=== PATIENT | male | born 1935 | race Caucasian/White ===

== ENCOUNTER 2022-04-04 11:18 | Inpatient (IN) | payer MEDICARE, BC ==
[2022-04-04] MEDS ORDERED: Cyclobenzaprine 10 MG Tab PO PRN (13:54)
[2022-04-04] MEDS ORDERED: Albuterol 8 GM Inhaler INH PRN (14:08)
[2022-04-04] MEDS: Lactulose Soln 10 GM/15 ML 30 ML UD Cup PO SCH ×2 (15:17→22:05)
[2022-04-04] MEDS: Lactulose Soln 10 GM/15 ML 15 ML UD Cup PO SCH (18:49)
[2022-04-04] MEDS: atorvaSTATin 40 MG Tab PO SCH (22:06)
[2022-04-04] MEDS: Metoprolol Tartrate 50 MG Tab PO SCH (22:06)
[2022-04-05] MEDS: Acetaminophen 325 MG Tab PO PRN (04:44)
[2022-04-05] MEDS: Pantoprazole 40 MG Tab.CR PO SCH (06:23)
[2022-04-05] MEDS: Furosemide 20 MG Tab PO SCH (08:44)
[2022-04-05] MEDS: Tamsulosin 0.4 MG Cap.ER PO SCH (08:44)
[2022-04-05] MEDS: Amiodarone 200 MG Tab PO SCH (08:44)
[2022-04-05] MEDS: Finasteride 5 MG Tab PO SCH (08:45)
[2022-04-05] MEDS: Polyethylene Glycol 3350 Powder 17 GM Packet PO SCH (08:45)
[2022-04-05] MEDS: amLODIPine 2.5 MG Tab PO SCH (08:52)
[2022-04-05] MEDS: Metoprolol Tartrate 25 MG Tab PO SCH (08:52)
[2022-04-05] MEDS: Lactulose Soln 10 GM/15 ML 30 ML UD Cup PO SCH ×3 (08:53→21:26)
[2022-04-05] MEDS: SALMETEROL INH SCH ×2 (09:01→21:27)
[2022-04-05] MEDS: FLUTICASONE PROPION INH SCH ×2 (09:01→21:27)
[2022-04-05] MEDS ORDERED: Warfarin 2.5 MG Tab PO SCH (16:00)
[2022-04-05] MEDS ORDERED: Warfarin Sliding Scale PO SCH (16:00)
[2022-04-05] MEDS: atorvaSTATin 40 MG Tab PO SCH (21:27)
[2022-04-05] MEDS: Metoprolol Tartrate 50 MG Tab PO SCH (21:27)
[2022-04-06] MEDS: Acetaminophen 325 MG Tab PO PRN ×2 (02:00→10:48)
[2022-04-06] MEDS: Pantoprazole 40 MG Tab.CR PO SCH (05:41)
[2022-04-06] MEDS: SALMETEROL INH SCH ×2 (10:40→20:55)
[2022-04-06] MEDS: FLUTICASONE PROPION INH SCH ×2 (10:40→20:55)
[2022-04-06] MEDS: Lactulose Soln 10 GM/15 ML 30 ML UD Cup PO SCH ×3 (10:41→20:56)
[2022-04-06] MEDS: Amiodarone 200 MG Tab PO SCH (10:41)
[2022-04-06] MEDS: Furosemide 20 MG Tab PO SCH (10:42)
[2022-04-06] MEDS: Finasteride 5 MG Tab PO SCH (10:42)
[2022-04-06] MEDS: Tamsulosin 0.4 MG Cap.ER PO SCH (10:42)
[2022-04-06] MEDS: Metoprolol Tartrate 25 MG Tab PO SCH (10:42)
[2022-04-06] MEDS: amLODIPine 2.5 MG Tab PO SCH (10:42)
[2022-04-06] MEDS: Polyethylene Glycol 3350 Powder 17 GM Packet PO SCH (10:42)
[2022-04-06] MEDS ORDERED: Warfarin 2.5 MG Tab PO ONE (16:00)
[2022-04-06] MEDS: atorvaSTATin 40 MG Tab PO SCH (20:55)
[2022-04-06] MEDS: Metoprolol Tartrate 50 MG Tab PO SCH (20:55)
[2022-04-07] MEDS: Pantoprazole 40 MG Tab.CR PO SCH (06:00)
[2022-04-07] MEDS: SALMETEROL INH SCH ×3 (08:24→20:13)
[2022-04-07] MEDS: FLUTICASONE PROPION INH SCH ×3 (08:24→20:13)
[2022-04-07] MEDS: amLODIPine 2.5 MG Tab PO SCH (08:24)
[2022-04-07] MEDS: Amiodarone 200 MG Tab PO SCH (08:25)
[2022-04-07] MEDS: Furosemide 20 MG Tab PO SCH (08:25)
[2022-04-07] MEDS: Lactulose Soln 10 GM/15 ML 30 ML UD Cup PO SCH (08:26)
[2022-04-07] MEDS: Tamsulosin 0.4 MG Cap.ER PO SCH (08:26)
[2022-04-07] MEDS: Polyethylene Glycol 3350 Powder 17 GM Packet PO SCH (08:27)
[2022-04-07] MEDS: Finasteride 5 MG Tab PO SCH (08:27)
[2022-04-07] MEDS: Metoprolol Tartrate 25 MG Tab PO SCH (08:27)
[2022-04-07] MEDS: Acetaminophen 325 MG Tab PO PRN (08:42)
[2022-04-07] MEDS ORDERED: Warfarin 5 MG Tab PO ONE (16:00)
[2022-04-07] MEDS: Metoprolol Tartrate 50 MG Tab PO SCH (20:12)
[2022-04-07] MEDS: atorvaSTATin 40 MG Tab PO SCH (20:12)
[2022-04-08] MEDS: Acetaminophen 325 MG Tab PO PRN ×2 (00:35→08:38)
[2022-04-08] MEDS: Pantoprazole 40 MG Tab.CR PO SCH (05:58)
[2022-04-08] MEDS: Amiodarone 200 MG Tab PO SCH (08:39)
[2022-04-08] MEDS: Finasteride 5 MG Tab PO SCH (08:39)
[2022-04-08] MEDS: Tamsulosin 0.4 MG Cap.ER PO SCH (08:39)
[2022-04-08] MEDS: Metoprolol Tartrate 25 MG Tab PO SCH (08:39)
[2022-04-08] MEDS: Furosemide 20 MG Tab PO SCH (08:40)
[2022-04-08] MEDS: amLODIPine 2.5 MG Tab PO SCH (08:40)
[2022-04-08] MEDS: SALMETEROL INH SCH ×2 (08:40→20:17)
[2022-04-08] MEDS: FLUTICASONE PROPION INH SCH ×2 (08:40→20:17)
[2022-04-08] MEDS ORDERED: Warfarin 2.5 MG Tab PO ONE (16:00)
[2022-04-08] MEDS: Metoprolol Tartrate 50 MG Tab PO SCH (20:17)
[2022-04-08] MEDS: atorvaSTATin 40 MG Tab PO SCH (20:17)
[2022-04-09] MEDS: Pantoprazole 40 MG Tab.CR PO SCH (05:02)
[2022-04-09] MEDS: Metoprolol Tartrate 25 MG Tab PO SCH (08:12)
[2022-04-09] MEDS: Amiodarone 200 MG Tab PO SCH (08:13)
[2022-04-09] MEDS: Furosemide 20 MG Tab PO SCH (08:13)
[2022-04-09] MEDS: Finasteride 5 MG Tab PO SCH (08:13)
[2022-04-09] MEDS: Tamsulosin 0.4 MG Cap.ER PO SCH (08:13)
[2022-04-09] MEDS: amLODIPine 2.5 MG Tab PO SCH (08:13)
[2022-04-09] MEDS: FLUTICASONE PROPION INH SCH ×2 (08:14→20:40)
[2022-04-09] MEDS: SALMETEROL INH SCH ×2 (08:14→20:40)
[2022-04-09] MEDS ORDERED: Warfarin 2.5 MG Tab PO ONE (16:00)
[2022-04-09] MEDS ORDERED: Warfarin 2.5 MG Tab PO SCH (16:00)
[2022-04-09] MEDS: atorvaSTATin 40 MG Tab PO SCH (20:37)
[2022-04-09] MEDS: Metoprolol Tartrate 50 MG Tab PO SCH (20:42)
[2022-04-09] MEDS: Melatonin 3 MG Tab PO PRN (20:44)
[2022-04-09] MEDS: Acetaminophen 325 MG Tab PO PRN (20:44)
[2022-04-10] MEDS: Pantoprazole 40 MG Tab.CR PO SCH (06:18)
[2022-04-10] MEDS: Amiodarone 200 MG Tab PO SCH (08:12)
[2022-04-10] MEDS: FLUTICASONE PROPION INH SCH ×2 (08:12→21:37)
[2022-04-10] MEDS: Furosemide 20 MG Tab PO SCH (08:12)
[2022-04-10] MEDS: Tamsulosin 0.4 MG Cap.ER PO SCH (08:12)
[2022-04-10] MEDS: SALMETEROL INH SCH ×2 (08:12→21:37)
[2022-04-10] MEDS: Metoprolol Tartrate 25 MG Tab PO SCH (08:13)
[2022-04-10] MEDS: amLODIPine 2.5 MG Tab PO SCH (08:14)
[2022-04-10] MEDS: Finasteride 5 MG Tab PO SCH (08:17)
[2022-04-10] MEDS ORDERED: Warfarin 2.5 MG Tab PO ONE (16:00)
[2022-04-10] MEDS: atorvaSTATin 40 MG Tab PO SCH (21:37)
[2022-04-10] MEDS: Acetaminophen 325 MG Tab PO PRN (21:38)
[2022-04-10] MEDS: Metoprolol Tartrate 50 MG Tab PO SCH (21:38)
[2022-04-10] MEDS: Melatonin 3 MG Tab PO PRN (21:58)
[2022-04-11] MEDS: Pantoprazole 40 MG Tab.CR PO SCH (05:29)
[2022-04-11] MEDS: Metoprolol Tartrate 25 MG Tab PO SCH (08:22)
[2022-04-11] MEDS: amLODIPine 2.5 MG Tab PO SCH (08:22)
[2022-04-11] MEDS: Amiodarone 200 MG Tab PO SCH (08:22)
[2022-04-11] MEDS: FLUTICASONE PROPION INH SCH ×2 (08:22→21:21)
[2022-04-11] MEDS: Furosemide 20 MG Tab PO SCH (08:22)
[2022-04-11] MEDS: SALMETEROL INH SCH ×2 (08:22→21:21)
[2022-04-11] MEDS: Tamsulosin 0.4 MG Cap.ER PO SCH (08:22)
[2022-04-11] MEDS: Finasteride 5 MG Tab PO SCH (08:23)
[2022-04-11] MEDS ORDERED: Warfarin 2.5 MG Tab PO ONE (16:00)
[2022-04-11] MEDS: Melatonin 3 MG Tab PO PRN (21:21)
[2022-04-11] MEDS: Acetaminophen 325 MG Tab PO PRN (21:22)
[2022-04-11] MEDS: Metoprolol Tartrate 50 MG Tab PO SCH (21:22)
[2022-04-11] MEDS: atorvaSTATin 40 MG Tab PO SCH (21:22)
[2022-04-12] MEDS: Pantoprazole 40 MG Tab.CR PO SCH (06:33)
[2022-04-12] MEDS: Amiodarone 200 MG Tab PO SCH (09:59)
[2022-04-12] MEDS: FLUTICASONE PROPION INH SCH ×2 (09:59→20:06)
[2022-04-12] MEDS: SALMETEROL INH SCH ×2 (09:59→20:06)
[2022-04-12] MEDS: Tamsulosin 0.4 MG Cap.ER PO SCH (09:59)
[2022-04-12] MEDS: amLODIPine 2.5 MG Tab PO SCH (10:00)
[2022-04-12] MEDS: Metoprolol Tartrate 25 MG Tab PO SCH (10:00)
[2022-04-12] MEDS: Furosemide 20 MG Tab PO SCH (10:00)
[2022-04-12] MEDS: Finasteride 5 MG Tab PO SCH (10:01)
[2022-04-12] MEDS: Metoprolol Tartrate 50 MG Tab PO SCH (20:07)
[2022-04-12] MEDS: atorvaSTATin 40 MG Tab PO SCH (20:07)
[2022-04-12] MEDS: Melatonin 3 MG Tab PO PRN (20:13)
[2022-04-12] MEDS: Acetaminophen 325 MG Tab PO PRN (20:13)
[2022-04-13] MEDS: Pantoprazole 40 MG Tab.CR PO SCH (05:50)
[2022-04-13] MEDS: Furosemide 20 MG Tab PO SCH (08:32)
[2022-04-13] MEDS: Metoprolol Tartrate 25 MG Tab PO SCH (08:32)
[2022-04-13] MEDS: Amiodarone 200 MG Tab PO SCH (08:32)
[2022-04-13] MEDS: SALMETEROL INH SCH ×2 (08:32→21:09)
[2022-04-13] MEDS: FLUTICASONE PROPION INH SCH ×2 (08:32→21:09)
[2022-04-13] MEDS: Tamsulosin 0.4 MG Cap.ER PO SCH (08:32)
[2022-04-13] MEDS: amLODIPine 2.5 MG Tab PO SCH (08:33)
[2022-04-13] MEDS: Finasteride 5 MG Tab PO SCH (08:33)
[2022-04-13] MEDS ORDERED: Warfarin 2.5 MG Tab PO ONE (16:00)
[2022-04-13] MEDS: Acetaminophen 325 MG Tab PO PRN (21:07)
[2022-04-13] MEDS: Melatonin 3 MG Tab PO PRN (21:08)
[2022-04-13] MEDS: Metoprolol Tartrate 50 MG Tab PO SCH (21:13)
[2022-04-13] MEDS: atorvaSTATin 40 MG Tab PO SCH (21:13)
[2022-04-14] MEDS: Pantoprazole 40 MG Tab.CR PO SCH (05:24)
[2022-04-14] MEDS: Furosemide 20 MG Tab PO SCH (08:06)
[2022-04-14] MEDS: Tamsulosin 0.4 MG Cap.ER PO SCH (08:06)
[2022-04-14] MEDS: Amiodarone 200 MG Tab PO SCH (08:06)
[2022-04-14] MEDS: Finasteride 5 MG Tab PO SCH (08:07)
[2022-04-14] MEDS: SALMETEROL INH SCH ×2 (08:07→21:10)
[2022-04-14] MEDS: amLODIPine 2.5 MG Tab PO SCH (08:07)
[2022-04-14] MEDS: Metoprolol Tartrate 25 MG Tab PO SCH (08:07)
[2022-04-14] MEDS: FLUTICASONE PROPION INH SCH ×2 (08:07→21:10)
[2022-04-14] MEDS ORDERED: Warfarin 2.5 MG Tab PO ONE (16:00)
[2022-04-14] MEDS: atorvaSTATin 40 MG Tab PO SCH (21:12)
[2022-04-14] MEDS: Metoprolol Tartrate 50 MG Tab PO SCH (21:12)
[2022-04-14] MEDS: Melatonin 3 MG Tab PO PRN (21:26)
[2022-04-14] MEDS: Acetaminophen 325 MG Tab PO PRN (21:27)
[2022-04-15] MEDS: Pantoprazole 40 MG Tab.CR PO SCH (05:16)
[2022-04-15] MEDS: Amiodarone 200 MG Tab PO SCH (08:30)
[2022-04-15] MEDS: amLODIPine 2.5 MG Tab PO SCH (08:30)
[2022-04-15] MEDS: Tamsulosin 0.4 MG Cap.ER PO SCH (08:30)
[2022-04-15] MEDS: Furosemide 20 MG Tab PO SCH (08:30)
[2022-04-15] MEDS: SALMETEROL INH SCH ×2 (08:31→21:22)
[2022-04-15] MEDS: Metoprolol Tartrate 25 MG Tab PO SCH (08:31)
[2022-04-15] MEDS: FLUTICASONE PROPION INH SCH ×2 (08:31→21:22)
[2022-04-15] MEDS: Finasteride 5 MG Tab PO SCH (08:31)
[2022-04-15] MEDS: Polyethylene Glycol 3350 Powder 17 GM Packet PO PRN (11:25)
[2022-04-15] MEDS: Acetaminophen 325 MG Tab PO PRN (21:21)
[2022-04-15] MEDS: atorvaSTATin 40 MG Tab PO SCH (21:22)
[2022-04-15] MEDS: Metoprolol Tartrate 50 MG Tab PO SCH (21:22)
[2022-04-16] MEDS: Pantoprazole 40 MG Tab.CR PO SCH (05:04)
[2022-04-16] MEDS: FLUTICASONE PROPION INH SCH ×2 (09:18→20:08)
[2022-04-16] MEDS: Tamsulosin 0.4 MG Cap.ER PO SCH (09:18)
[2022-04-16] MEDS: Amiodarone 200 MG Tab PO SCH (09:18)
[2022-04-16] MEDS: SALMETEROL INH SCH ×2 (09:18→20:08)
[2022-04-16] MEDS: Furosemide 20 MG Tab PO SCH (09:19)
[2022-04-16] MEDS: Metoprolol Tartrate 25 MG Tab PO SCH (09:19)
[2022-04-16] MEDS: amLODIPine 2.5 MG Tab PO SCH (09:20)
[2022-04-16] MEDS: Finasteride 5 MG Tab PO SCH (09:20)
[2022-04-16] MEDS ORDERED: Warfarin 2.5 MG Tab PO ONE (16:00)
[2022-04-16] MEDS: Metoprolol Tartrate 50 MG Tab PO SCH (20:08)
[2022-04-16] MEDS: atorvaSTATin 40 MG Tab PO SCH (20:08)
[2022-04-17] MEDS: Pantoprazole 40 MG Tab.CR PO SCH (06:04)
[2022-04-17] MEDS: Finasteride 5 MG Tab PO SCH (08:31)
[2022-04-17] MEDS: Amiodarone 200 MG Tab PO SCH (08:31)
[2022-04-17] MEDS: Furosemide 20 MG Tab PO SCH (08:31)
[2022-04-17] MEDS: Tamsulosin 0.4 MG Cap.ER PO SCH (08:31)
[2022-04-17] MEDS: SALMETEROL INH SCH ×2 (08:32→20:37)
[2022-04-17] MEDS: FLUTICASONE PROPION INH SCH ×2 (08:32→20:37)
[2022-04-17] MEDS: Metoprolol Tartrate 25 MG Tab PO SCH (08:32)
[2022-04-17] MEDS: amLODIPine 2.5 MG Tab PO SCH (08:33)
[2022-04-17] MEDS: Polyethylene Glycol 3350 Powder 17 GM Packet PO PRN (17:57)
[2022-04-17] MEDS: Metoprolol Tartrate 50 MG Tab PO SCH (20:37)
[2022-04-17] MEDS: atorvaSTATin 40 MG Tab PO SCH (20:37)
[2022-04-17] MEDS: Acetaminophen 325 MG Tab PO PRN (20:38)
[2022-04-17] MEDS: Melatonin 3 MG Tab PO PRN (20:39)
[2022-04-18] MEDS: Pantoprazole 40 MG Tab.CR PO SCH (05:13)
[2022-04-18] MEDS: Amiodarone 200 MG Tab PO SCH (08:04)
[2022-04-18] MEDS: Tamsulosin 0.4 MG Cap.ER PO SCH (08:04)
[2022-04-18] MEDS: Furosemide 20 MG Tab PO SCH (08:05)
[2022-04-18] MEDS: SALMETEROL INH SCH ×2 (08:05→20:17)
[2022-04-18] MEDS: FLUTICASONE PROPION INH SCH ×2 (08:05→20:17)
[2022-04-18] MEDS: Metoprolol Tartrate 25 MG Tab PO SCH (08:05)
[2022-04-18] MEDS: Finasteride 5 MG Tab PO SCH (08:06)
[2022-04-18] MEDS: amLODIPine 2.5 MG Tab PO SCH (08:06)
[2022-04-18] MEDS: atorvaSTATin 40 MG Tab PO SCH (20:18)
[2022-04-18] MEDS: Metoprolol Tartrate 50 MG Tab PO SCH (20:20)
[2022-04-18] MEDS: Melatonin 3 MG Tab PO PRN (20:40)
[2022-04-19] MEDS: Pantoprazole 40 MG Tab.CR PO SCH (05:52)
[2022-04-19] MEDS: Tamsulosin 0.4 MG Cap.ER PO SCH (09:20)
[2022-04-19] MEDS: Amiodarone 200 MG Tab PO SCH (09:20)
[2022-04-19] MEDS: SALMETEROL INH SCH ×2 (09:20→20:21)
[2022-04-19] MEDS: FLUTICASONE PROPION INH SCH ×2 (09:20→20:21)
[2022-04-19] MEDS: Metoprolol Tartrate 25 MG Tab PO SCH (09:21)
[2022-04-19] MEDS: Furosemide 20 MG Tab PO SCH (09:21)
[2022-04-19] MEDS: Finasteride 5 MG Tab PO SCH (09:23)
[2022-04-19] MEDS: amLODIPine 2.5 MG Tab PO SCH (09:23)
[2022-04-19] MEDS: Polyethylene Glycol 3350 Powder 17 GM Packet PO PRN (09:24)
[2022-04-19] MEDS: Metoprolol Tartrate 50 MG Tab PO SCH (20:23)
[2022-04-19] MEDS: atorvaSTATin 40 MG Tab PO SCH (20:23)
[2022-04-20] MEDS: Pantoprazole 40 MG Tab.CR PO SCH (06:09)
[2022-04-20] MEDS: Finasteride 5 MG Tab PO SCH (08:07)
[2022-04-20] MEDS: Metoprolol Tartrate 25 MG Tab PO SCH (08:07)
[2022-04-20] MEDS: amLODIPine 2.5 MG Tab PO SCH (08:07)
[2022-04-20] MEDS: Amiodarone 200 MG Tab PO SCH (08:07)
[2022-04-20] MEDS: FLUTICASONE PROPION INH SCH ×2 (08:08→20:08)
[2022-04-20] MEDS: SALMETEROL INH SCH ×2 (08:08→20:08)
[2022-04-20] MEDS: Furosemide 20 MG Tab PO SCH (08:08)
[2022-04-20] MEDS: Tamsulosin 0.4 MG Cap.ER PO SCH (08:08)
[2022-04-20] MEDS: Acetaminophen 325 MG Tab PO PRN ×2 (10:58→20:15)
[2022-04-20] MEDS: Metoprolol Tartrate 50 MG Tab PO SCH (20:14)
[2022-04-20] MEDS: atorvaSTATin 40 MG Tab PO SCH (20:14)
[2022-04-20] MEDS: Melatonin 3 MG Tab PO PRN (20:15)
[2022-04-21] MEDS: Pantoprazole 40 MG Tab.CR PO SCH (05:57)
[2022-04-21] MEDS: FLUTICASONE PROPION INH SCH ×2 (08:22→20:11)
[2022-04-21] MEDS: SALMETEROL INH SCH ×2 (08:22→20:11)
[2022-04-21] MEDS: amLODIPine 2.5 MG Tab PO SCH (08:23)
[2022-04-21] MEDS: Amiodarone 200 MG Tab PO SCH (08:23)
[2022-04-21] MEDS: Furosemide 20 MG Tab PO SCH (08:23)
[2022-04-21] MEDS: Metoprolol Tartrate 25 MG Tab PO SCH (08:24)
[2022-04-21] MEDS: Tamsulosin 0.4 MG Cap.ER PO SCH (08:24)
[2022-04-21] MEDS: Finasteride 5 MG Tab PO SCH (08:25)
[2022-04-21] MEDS: Metoprolol Tartrate 50 MG Tab PO SCH (20:13)
[2022-04-21] MEDS: atorvaSTATin 40 MG Tab PO SCH (20:13)
[2022-04-21] MEDS: Acetaminophen 325 MG Tab PO PRN (20:17)
[2022-04-21] MEDS: Melatonin 3 MG Tab PO PRN (20:18)
[2022-04-22] MEDS: Pantoprazole 40 MG Tab.CR PO SCH (05:32)
[2022-04-22] MEDS: SALMETEROL INH SCH ×2 (08:27→20:20)
[2022-04-22] MEDS: FLUTICASONE PROPION INH SCH ×2 (08:27→20:20)
[2022-04-22] MEDS: amLODIPine 2.5 MG Tab PO SCH (08:28)
[2022-04-22] MEDS: Furosemide 20 MG Tab PO SCH (08:28)
[2022-04-22] MEDS: Amiodarone 200 MG Tab PO SCH (08:28)
[2022-04-22] MEDS: Finasteride 5 MG Tab PO SCH (08:29)
[2022-04-22] MEDS: Metoprolol Tartrate 25 MG Tab PO SCH (08:29)
[2022-04-22] MEDS: Tamsulosin 0.4 MG Cap.ER PO SCH (08:29)
[2022-04-22] MEDS: atorvaSTATin 40 MG Tab PO SCH (20:20)
[2022-04-22] MEDS: Metoprolol Tartrate 50 MG Tab PO SCH (20:20)
[2022-04-22] MEDS: Acetaminophen 325 MG Tab PO PRN (20:21)
[2022-04-22] MEDS: Melatonin 3 MG Tab PO PRN (20:21)
[2022-04-23] MEDS: Pantoprazole 40 MG Tab.CR PO SCH (05:30)
[2022-04-23] MEDS: Furosemide 20 MG Tab PO SCH (08:18)
[2022-04-23] MEDS: Amiodarone 200 MG Tab PO SCH (08:18)
[2022-04-23] MEDS: Metoprolol Tartrate 25 MG Tab PO SCH (08:18)
[2022-04-23] MEDS: amLODIPine 2.5 MG Tab PO SCH (08:18)
[2022-04-23] MEDS: SALMETEROL INH SCH ×2 (08:19→20:20)
[2022-04-23] MEDS: FLUTICASONE PROPION INH SCH ×2 (08:19→20:20)
[2022-04-23] MEDS: Tamsulosin 0.4 MG Cap.ER PO SCH (08:19)
[2022-04-23] MEDS: Finasteride 5 MG Tab PO SCH (08:19)
[2022-04-23] MEDS: atorvaSTATin 40 MG Tab PO SCH (20:22)
[2022-04-23] MEDS: Metoprolol Tartrate 50 MG Tab PO SCH (20:22)
[2022-04-23] MEDS: Melatonin 3 MG Tab PO PRN (20:22)
[2022-04-23] MEDS: Acetaminophen 325 MG Tab PO PRN (20:23)
[2022-04-24] MEDS: Pantoprazole 40 MG Tab.CR PO SCH (06:21)
[2022-04-24] MEDS: amLODIPine 2.5 MG Tab PO SCH (08:00)
[2022-04-24] MEDS: Amiodarone 200 MG Tab PO SCH (08:00)
[2022-04-24] MEDS: Finasteride 5 MG Tab PO SCH (08:00)
[2022-04-24] MEDS: FLUTICASONE PROPION INH SCH ×2 (08:00→21:11)
[2022-04-24] MEDS: SALMETEROL INH SCH ×2 (08:00→21:11)
[2022-04-24] MEDS: Metoprolol Tartrate 25 MG Tab PO SCH (08:00)
[2022-04-24] MEDS: Furosemide 20 MG Tab PO SCH (08:00)
[2022-04-24] MEDS: Tamsulosin 0.4 MG Cap.ER PO SCH (08:00)
[2022-04-24] MEDS: atorvaSTATin 40 MG Tab PO SCH (21:11)
[2022-04-24] MEDS: Metoprolol Tartrate 50 MG Tab PO SCH (21:12)
[2022-04-24] MEDS: Acetaminophen 325 MG Tab PO PRN (21:13)
[2022-04-24] MEDS: Melatonin 3 MG Tab PO PRN (21:13)
[2022-04-25] MEDS: Pantoprazole 40 MG Tab.CR PO SCH (06:17)
[2022-04-25] MEDS: Finasteride 5 MG Tab PO SCH (08:54)
[2022-04-25] MEDS: amLODIPine 2.5 MG Tab PO SCH (08:54)
[2022-04-25] MEDS: Furosemide 20 MG Tab PO SCH (08:55)
[2022-04-25] MEDS: Amiodarone 200 MG Tab PO SCH (08:55)
[2022-04-25] MEDS: Metoprolol Tartrate 25 MG Tab PO SCH (08:55)
[2022-04-25] MEDS: Tamsulosin 0.4 MG Cap.ER PO SCH (08:55)
[2022-04-25] MEDS: SALMETEROL INH SCH ×2 (08:56→20:29)
[2022-04-25] MEDS: FLUTICASONE PROPION INH SCH ×2 (08:56→20:29)
[2022-04-25] MEDS: Metoprolol Tartrate 50 MG Tab PO SCH (20:31)
[2022-04-25] MEDS: atorvaSTATin 40 MG Tab PO SCH (20:31)
[2022-04-25] MEDS: Melatonin 3 MG Tab PO PRN (20:32)
[2022-04-25] MEDS: Acetaminophen 325 MG Tab PO PRN (20:33)
[2022-04-26] MEDS: Pantoprazole 40 MG Tab.CR PO SCH (05:03)
[2022-04-26] MEDS: Amiodarone 200 MG Tab PO SCH (08:58)
[2022-04-26] MEDS: SALMETEROL INH SCH ×2 (08:59→21:28)
[2022-04-26] MEDS: FLUTICASONE PROPION INH SCH ×2 (08:59→21:28)
[2022-04-26] MEDS: Tamsulosin 0.4 MG Cap.ER PO SCH (08:59)
[2022-04-26] MEDS: Furosemide 20 MG Tab PO SCH (09:00)
[2022-04-26] MEDS: Metoprolol Tartrate 25 MG Tab PO SCH (09:00)
[2022-04-26] MEDS: amLODIPine 2.5 MG Tab PO SCH (09:01)
[2022-04-26] MEDS: Finasteride 5 MG Tab PO SCH (09:02)
[2022-04-26] MEDS: Sulfamethoxazole/Trimethoprim 800-160 MG Tab PO SCH ×2 (10:52→21:31)
[2022-04-26] MEDS: atorvaSTATin 40 MG Tab PO SCH (21:29)
[2022-04-26] MEDS: Metoprolol Tartrate 50 MG Tab PO SCH (21:30)
[2022-04-26] MEDS: Acetaminophen 325 MG Tab PO PRN (21:31)
[2022-04-26] MEDS: Melatonin 3 MG Tab PO PRN (21:31)
[2022-04-27] MEDS: Pantoprazole 40 MG Tab.CR PO SCH (05:44)
[2022-04-27] MEDS: Furosemide 20 MG Tab PO SCH (08:17)
[2022-04-27] MEDS: amLODIPine 2.5 MG Tab PO SCH (08:17)
[2022-04-27] MEDS: Amiodarone 200 MG Tab PO SCH (08:18)
[2022-04-27] MEDS: Finasteride 5 MG Tab PO SCH (08:18)
[2022-04-27] MEDS: Sulfamethoxazole/Trimethoprim 800-160 MG Tab PO SCH ×2 (08:18→20:54)
[2022-04-27] MEDS: SALMETEROL INH SCH ×2 (08:18→20:45)
[2022-04-27] MEDS: Metoprolol Tartrate 25 MG Tab PO SCH (08:18)
[2022-04-27] MEDS: FLUTICASONE PROPION INH SCH ×2 (08:18→20:45)
[2022-04-27] MEDS: Tamsulosin 0.4 MG Cap.ER PO SCH (08:19)
[2022-04-27] MEDS: atorvaSTATin 40 MG Tab PO SCH (20:52)
[2022-04-27] MEDS: Metoprolol Tartrate 50 MG Tab PO SCH (20:53)
[2022-04-27] MEDS: Acetaminophen 325 MG Tab PO PRN (20:55)
[2022-04-27] MEDS: Melatonin 3 MG Tab PO PRN (21:30)
[2022-04-28] MEDS: Pantoprazole 40 MG Tab.CR PO SCH (05:12)
[2022-04-28] MEDS: Tamsulosin 0.4 MG Cap.ER PO SCH (08:09)
[2022-04-28] MEDS: Furosemide 20 MG Tab PO SCH (08:09)
[2022-04-28] MEDS: Amiodarone 200 MG Tab PO SCH (08:09)
[2022-04-28] MEDS: Metoprolol Tartrate 25 MG Tab PO SCH (08:10)
[2022-04-28] MEDS: amLODIPine 2.5 MG Tab PO SCH (08:10)
[2022-04-28] MEDS: FLUTICASONE PROPION INH SCH ×2 (08:11→21:14)
[2022-04-28] MEDS: Sulfamethoxazole/Trimethoprim 800-160 MG Tab PO SCH ×2 (08:11→21:15)
[2022-04-28] MEDS: Finasteride 5 MG Tab PO SCH (08:11)
[2022-04-28] MEDS: SALMETEROL INH SCH ×2 (08:11→21:14)
[2022-04-28] MEDS: atorvaSTATin 40 MG Tab PO SCH (21:14)
[2022-04-28] MEDS: Acetaminophen 325 MG Tab PO PRN (21:15)
[2022-04-28] MEDS: Melatonin 3 MG Tab PO PRN (21:15)
[2022-04-28] MEDS: Metoprolol Tartrate 50 MG Tab PO SCH (21:15)
[2022-04-29] MEDS: Pantoprazole 40 MG Tab.CR PO SCH (05:46)
[2022-04-29] MEDS: SALMETEROL INH SCH ×2 (08:19→20:25)
[2022-04-29] MEDS: FLUTICASONE PROPION INH SCH ×2 (08:19→20:25)
[2022-04-29] MEDS: amLODIPine 2.5 MG Tab PO SCH (08:27)
[2022-04-29] MEDS: Furosemide 20 MG Tab PO SCH (08:27)
[2022-04-29] MEDS: Tamsulosin 0.4 MG Cap.ER PO SCH (08:27)
[2022-04-29] MEDS: Amiodarone 200 MG Tab PO SCH (08:27)
[2022-04-29] MEDS: Sulfamethoxazole/Trimethoprim 800-160 MG Tab PO SCH ×2 (08:28→20:26)
[2022-04-29] MEDS: Metoprolol Tartrate 25 MG Tab PO SCH (08:28)
[2022-04-29] MEDS: Finasteride 5 MG Tab PO SCH (08:28)
[2022-04-29] MEDS: Metoprolol Tartrate 50 MG Tab PO SCH (20:25)
[2022-04-29] MEDS: atorvaSTATin 40 MG Tab PO SCH (20:25)
[2022-04-29] MEDS: Acetaminophen 325 MG Tab PO PRN (20:26)
[2022-04-29] MEDS: Melatonin 3 MG Tab PO PRN (21:15)
[2022-04-30] MEDS: Pantoprazole 40 MG Tab.CR PO SCH (05:37)
[2022-04-30] MEDS: Furosemide 20 MG Tab PO SCH (08:15)
[2022-04-30] MEDS: Sulfamethoxazole/Trimethoprim 800-160 MG Tab PO SCH ×2 (08:15→20:51)
[2022-04-30] MEDS: Finasteride 5 MG Tab PO SCH (08:15)
[2022-04-30] MEDS: amLODIPine 2.5 MG Tab PO SCH (08:15)
[2022-04-30] MEDS: Amiodarone 200 MG Tab PO SCH (08:16)
[2022-04-30] MEDS: Tamsulosin 0.4 MG Cap.ER PO SCH ×3 (08:16→20:49)
[2022-04-30] MEDS: Metoprolol Tartrate 25 MG Tab PO SCH (08:16)
[2022-04-30] MEDS: SALMETEROL INH SCH ×2 (08:18→20:46)
[2022-04-30] MEDS: FLUTICASONE PROPION INH SCH ×2 (08:18→20:46)
[2022-04-30] MEDS: atorvaSTATin 40 MG Tab PO SCH (20:50)
[2022-04-30] MEDS: Metoprolol Tartrate 50 MG Tab PO SCH (20:50)
[2022-04-30] MEDS: Melatonin 3 MG Tab PO PRN (20:51)
[2022-04-30] MEDS: Acetaminophen 325 MG Tab PO PRN (20:52)
[2022-05-01] MEDS: Pantoprazole 40 MG Tab.CR PO SCH (05:38)
[2022-05-01] MEDS: Amiodarone 200 MG Tab PO SCH (10:22)
[2022-05-01] MEDS: FLUTICASONE PROPION INH SCH ×2 (10:23→20:07)
[2022-05-01] MEDS: Furosemide 20 MG Tab PO SCH (10:23)
[2022-05-01] MEDS: Finasteride 5 MG Tab PO SCH (10:23)
[2022-05-01] MEDS: Tamsulosin 0.4 MG Cap.ER PO SCH ×2 (10:23→20:02)
[2022-05-01] MEDS: Metoprolol Tartrate 50 MG Tab PO SCH ×2 (10:23→20:38)
[2022-05-01] MEDS: SALMETEROL INH SCH ×2 (10:23→20:07)
[2022-05-01] MEDS: Sulfamethoxazole/Trimethoprim 800-160 MG Tab PO SCH (10:24)
[2022-05-01] MEDS: atorvaSTATin 40 MG Tab PO SCH (20:07)
[2022-05-02] MEDS: Pantoprazole 40 MG Tab.CR PO SCH (05:45)
[2022-05-02] MEDS: Amiodarone 200 MG Tab PO SCH (09:10)
[2022-05-02] MEDS: Finasteride 5 MG Tab PO SCH (09:10)
[2022-05-02] MEDS: Tamsulosin 0.4 MG Cap.ER PO SCH ×2 (09:10→19:10)
[2022-05-02] MEDS: FLUTICASONE PROPION INH SCH ×2 (09:10→21:13)
[2022-05-02] MEDS: SALMETEROL INH SCH ×2 (09:10→21:13)
[2022-05-02] MEDS: Metoprolol Tartrate 50 MG Tab PO SCH (09:25)
[2022-05-02] MEDS: atorvaSTATin 40 MG Tab PO SCH (21:13)
[2022-05-02] MEDS: Metoprolol Tartrate 25 MG Tab PO SCH (21:14)
[2022-05-02] MEDS: Melatonin 3 MG Tab PO PRN (21:14)
[2022-05-02] MEDS: Acetaminophen 325 MG Tab PO PRN (21:15)
[2022-05-03] MEDS: Pantoprazole 40 MG Tab.CR PO SCH (05:08)
[2022-05-03] MEDS: SALMETEROL INH SCH ×2 (08:43→21:05)
[2022-05-03] MEDS: FLUTICASONE PROPION INH SCH ×2 (08:43→21:05)
[2022-05-03] MEDS: Amiodarone 200 MG Tab PO SCH (08:46)
[2022-05-03] MEDS: Tamsulosin 0.4 MG Cap.ER PO SCH ×2 (08:46→19:02)
[2022-05-03] MEDS: Finasteride 5 MG Tab PO SCH (08:46)
[2022-05-03] MEDS: Metoprolol Tartrate 25 MG Tab PO SCH ×2 (08:46→21:05)
[2022-05-03] MEDS: atorvaSTATin 40 MG Tab PO SCH (21:05)
[2022-05-04] MEDS: Pantoprazole 40 MG Tab.CR PO SCH (05:18)
[2022-05-04] MEDS: SALMETEROL INH SCH ×2 (08:54→20:03)
[2022-05-04] MEDS: FLUTICASONE PROPION INH SCH ×2 (08:54→20:03)
[2022-05-04] MEDS: Tamsulosin 0.4 MG Cap.ER PO SCH ×2 (08:54→19:48)
[2022-05-04] MEDS: Finasteride 5 MG Tab PO SCH (08:54)
[2022-05-04] MEDS: Amiodarone 200 MG Tab PO SCH (08:54)
[2022-05-04] MEDS: Metoprolol Tartrate 25 MG Tab PO SCH ×2 (08:55→20:31)
[2022-05-04] MEDS: atorvaSTATin 40 MG Tab PO SCH (20:32)
[2022-05-05] MEDS: Pantoprazole 40 MG Tab.CR PO SCH (05:11)
[2022-05-05] MEDS: Tamsulosin 0.4 MG Cap.ER PO SCH ×2 (08:54→18:48)
[2022-05-05] MEDS: Metoprolol Tartrate 25 MG Tab PO SCH ×2 (08:54→20:41)
[2022-05-05] MEDS: Amiodarone 200 MG Tab PO SCH (08:55)
[2022-05-05] MEDS: SALMETEROL INH SCH ×2 (08:56→20:38)
[2022-05-05] MEDS: FLUTICASONE PROPION INH SCH ×2 (08:56→20:38)
[2022-05-05] MEDS: Finasteride 5 MG Tab PO SCH (08:57)
[2022-05-05] MEDS: atorvaSTATin 40 MG Tab PO SCH (20:38)
[2022-05-06] MEDS: Pantoprazole 40 MG Tab.CR PO SCH (06:04)
[2022-05-06] MEDS: Amiodarone 200 MG Tab PO SCH (09:18)
[2022-05-06] MEDS: Tamsulosin 0.4 MG Cap.ER PO SCH ×2 (09:19→18:39)
[2022-05-06] MEDS: FLUTICASONE PROPION INH SCH ×2 (09:19→21:17)
[2022-05-06] MEDS: SALMETEROL INH SCH ×2 (09:19→21:17)
[2022-05-06] MEDS: Metoprolol Tartrate 25 MG Tab PO SCH ×2 (09:20→21:18)
[2022-05-06] MEDS: Finasteride 5 MG Tab PO SCH (09:22)
[2022-05-06] MEDS: atorvaSTATin 40 MG Tab PO SCH (21:18)
[2022-05-07] MEDS: Pantoprazole 40 MG Tab.CR PO SCH (06:28)
[2022-05-07] MEDS: FLUTICASONE PROPION INH SCH ×2 (08:27→20:48)
[2022-05-07] MEDS: SALMETEROL INH SCH ×2 (08:27→20:48)
[2022-05-07] MEDS: Metoprolol Tartrate 25 MG Tab PO SCH ×2 (08:28→20:48)
[2022-05-07] MEDS: Amiodarone 200 MG Tab PO SCH (08:28)
[2022-05-07] MEDS: Finasteride 5 MG Tab PO SCH (08:28)
[2022-05-07] MEDS: Tamsulosin 0.4 MG Cap.ER PO SCH ×2 (08:28→18:52)
[2022-05-07] MEDS ORDERED: Warfarin 3 MG Tab PO ONE (16:00)
[2022-05-07] MEDS: atorvaSTATin 40 MG Tab PO SCH (20:48)
[2022-05-08] MEDS: Pantoprazole 40 MG Tab.CR PO SCH (06:00)
[2022-05-08] MEDS: Finasteride 5 MG Tab PO SCH (09:32)
[2022-05-08] MEDS: FLUTICASONE PROPION INH SCH ×2 (09:32→22:05)
[2022-05-08] MEDS: SALMETEROL INH SCH ×2 (09:32→22:05)
[2022-05-08] MEDS: Amiodarone 200 MG Tab PO SCH (09:32)
[2022-05-08] MEDS: Metoprolol Tartrate 25 MG Tab PO SCH ×2 (09:33→22:05)
[2022-05-08] MEDS: Tamsulosin 0.4 MG Cap.ER PO SCH ×2 (09:33→22:05)
[2022-05-08] MEDS: atorvaSTATin 40 MG Tab PO SCH (22:05)
[2022-05-08] MEDS: Melatonin 3 MG Tab PO PRN (22:14)
[2022-05-09] MEDS: Pantoprazole 40 MG Tab.CR PO SCH (06:56)
[2022-05-09] MEDS: Finasteride 5 MG Tab PO SCH (08:46)
[2022-05-09] MEDS: Amiodarone 200 MG Tab PO SCH (08:46)
[2022-05-09] MEDS: Tamsulosin 0.4 MG Cap.ER PO SCH ×2 (08:46→18:24)
[2022-05-09] MEDS: Metoprolol Tartrate 25 MG Tab PO SCH ×2 (08:46→21:36)
[2022-05-09] MEDS: SALMETEROL INH SCH ×2 (08:47→21:37)
[2022-05-09] MEDS: FLUTICASONE PROPION INH SCH ×2 (08:47→21:37)
[2022-05-09] MEDS: atorvaSTATin 40 MG Tab PO SCH (21:36)
[2022-05-10] MEDS: Pantoprazole 40 MG Tab.CR PO SCH (05:32)
[2022-05-10] MEDS: Metoprolol Tartrate 25 MG Tab PO SCH ×2 (09:30→22:09)
[2022-05-10] MEDS: Tamsulosin 0.4 MG Cap.ER PO SCH ×2 (09:31→18:09)
[2022-05-10] MEDS: Finasteride 5 MG Tab PO SCH (09:31)
[2022-05-10] MEDS: Amiodarone 200 MG Tab PO SCH (09:31)
[2022-05-10] MEDS: SALMETEROL INH SCH ×2 (09:32→22:06)
[2022-05-10] MEDS: FLUTICASONE PROPION INH SCH ×2 (09:32→22:06)
[2022-05-10] MEDS: Warfarin 2.5 MG Tab PO SCH (16:20)
[2022-05-10] MEDS: atorvaSTATin 40 MG Tab PO SCH (22:07)
[2022-05-10] MEDS: Melatonin 3 MG Tab PO PRN (22:11)
[2022-05-10] MEDS: Acetaminophen 325 MG Tab PO PRN (22:11)
[2022-05-11] MEDS: Pantoprazole 40 MG Tab.CR PO SCH (04:59)
[2022-05-11] MEDS: Amiodarone 200 MG Tab PO SCH (09:15)
[2022-05-11] MEDS: Tamsulosin 0.4 MG Cap.ER PO SCH ×2 (09:15→18:25)
[2022-05-11] MEDS: Finasteride 5 MG Tab PO SCH (09:15)
[2022-05-11] MEDS: SALMETEROL INH SCH ×2 (09:16→20:00)
[2022-05-11] MEDS: Metoprolol Tartrate 25 MG Tab PO SCH ×2 (09:16→20:01)
[2022-05-11] MEDS: FLUTICASONE PROPION INH SCH ×2 (09:16→20:00)
[2022-05-11] MEDS: Warfarin 2.5 MG Tab PO SCH (16:53)
[2022-05-11] MEDS: atorvaSTATin 40 MG Tab PO SCH (20:01)
[2022-05-11] MEDS: Melatonin 3 MG Tab PO PRN (22:12)
[2022-05-12] MEDS: Pantoprazole 40 MG Tab.CR PO SCH (05:49)
[2022-05-12] MEDS: FLUTICASONE PROPION INH SCH ×2 (08:15→20:03)
[2022-05-12] MEDS: SALMETEROL INH SCH ×2 (08:15→20:03)
[2022-05-12] MEDS: Tamsulosin 0.4 MG Cap.ER PO SCH ×2 (08:16→18:47)
[2022-05-12] MEDS: Amiodarone 200 MG Tab PO SCH (08:16)
[2022-05-12] MEDS: Metoprolol Tartrate 25 MG Tab PO SCH ×2 (08:16→20:03)
[2022-05-12] MEDS: Finasteride 5 MG Tab PO SCH (08:16)
[2022-05-12] MEDS: Warfarin 2.5 MG Tab PO SCH (17:28)
[2022-05-12] MEDS: atorvaSTATin 40 MG Tab PO SCH (20:03)
[2022-05-12] MEDS: Melatonin 3 MG Tab PO PRN (22:12)
[2022-05-13] MEDS: Pantoprazole 40 MG Tab.CR PO SCH (05:57)
[2022-05-13] MEDS: Amiodarone 200 MG Tab PO SCH (08:01)
[2022-05-13] MEDS: SALMETEROL INH SCH ×2 (08:02→20:09)
[2022-05-13] MEDS: Finasteride 5 MG Tab PO SCH (08:02)
[2022-05-13] MEDS: Tamsulosin 0.4 MG Cap.ER PO SCH ×2 (08:02→18:08)
[2022-05-13] MEDS: FLUTICASONE PROPION INH SCH ×2 (08:02→20:09)
[2022-05-13] MEDS: Metoprolol Tartrate 25 MG Tab PO SCH ×2 (08:03→20:08)
[2022-05-13] MEDS: Warfarin 2.5 MG Tab PO SCH (16:30)
[2022-05-13] MEDS: atorvaSTATin 40 MG Tab PO SCH (20:08)
[2022-05-13] MEDS: Melatonin 3 MG Tab PO PRN (22:13)
[2022-05-14] MEDS: Pantoprazole 40 MG Tab.CR PO SCH (05:47)
[2022-05-14] MEDS: Finasteride 5 MG Tab PO SCH (08:05)
[2022-05-14] MEDS: Metoprolol Tartrate 25 MG Tab PO SCH ×2 (08:05→21:23)
[2022-05-14] MEDS: SALMETEROL INH SCH ×2 (08:05→21:23)
[2022-05-14] MEDS: Tamsulosin 0.4 MG Cap.ER PO SCH ×2 (08:05→18:15)
[2022-05-14] MEDS: FLUTICASONE PROPION INH SCH ×2 (08:05→21:23)
[2022-05-14] MEDS: Amiodarone 200 MG Tab PO SCH (08:05)
[2022-05-14] MEDS: Warfarin 2.5 MG Tab PO SCH (15:40)
[2022-05-14] MEDS ORDERED: Warfarin 2 MG Tab PO SCH (16:00)
[2022-05-14] MEDS: atorvaSTATin 40 MG Tab PO SCH (21:23)
[2022-05-15] MEDS: Pantoprazole 40 MG Tab.CR PO SCH (05:00)
[2022-05-15] MEDS: FLUTICASONE PROPION INH SCH ×2 (08:18→20:08)
[2022-05-15] MEDS: SALMETEROL INH SCH ×2 (08:18→20:08)
[2022-05-15] MEDS: Metoprolol Tartrate 25 MG Tab PO SCH ×2 (08:19→20:08)
[2022-05-15] MEDS: Tamsulosin 0.4 MG Cap.ER PO SCH ×2 (08:19→18:07)
[2022-05-15] MEDS: Amiodarone 200 MG Tab PO SCH (08:19)
[2022-05-15] MEDS: Finasteride 5 MG Tab PO SCH (08:20)
[2022-05-15] MEDS: Warfarin 2.5 MG Tab PO SCH (16:14)
[2022-05-15] MEDS: atorvaSTATin 40 MG Tab PO SCH (20:08)
[2022-05-16] MEDS: Pantoprazole 40 MG Tab.CR PO SCH (05:33)
[2022-05-16] MEDS: Metoprolol Tartrate 25 MG Tab PO SCH ×2 (08:57→20:17)
[2022-05-16] MEDS: Tamsulosin 0.4 MG Cap.ER PO SCH ×2 (08:57→18:33)
[2022-05-16] MEDS: Amiodarone 200 MG Tab PO SCH (08:57)
[2022-05-16] MEDS: FLUTICASONE PROPION INH SCH ×2 (08:57→20:16)
[2022-05-16] MEDS: Finasteride 5 MG Tab PO SCH (08:57)
[2022-05-16] MEDS: SALMETEROL INH SCH ×2 (08:57→20:16)
[2022-05-16] MEDS: Warfarin 2.5 MG Tab PO SCH (16:55)
[2022-05-16] MEDS: atorvaSTATin 40 MG Tab PO SCH (20:17)
[2022-05-16] MEDS: Acetaminophen 325 MG Tab PO PRN (20:18)
[2022-05-16] MEDS: Melatonin 3 MG Tab PO PRN (20:18)
[2022-05-17] MEDS: Pantoprazole 40 MG Tab.CR PO SCH ×2 (04:00→05:08)
[2022-05-17] MEDS: FLUTICASONE PROPION INH SCH ×3 (05:11→22:05)
[2022-05-17] MEDS: Tamsulosin 0.4 MG Cap.ER PO SCH ×3 (05:11→18:14)
[2022-05-17] MEDS: SALMETEROL INH SCH ×3 (05:11→22:05)
[2022-05-17] MEDS: Metoprolol Tartrate 25 MG Tab PO SCH ×3 (05:12→22:09)
[2022-05-17] MEDS: Finasteride 5 MG Tab PO SCH ×2 (05:14→10:00)
[2022-05-17] MEDS: Amiodarone 200 MG Tab PO SCH ×2 (05:16→10:00)
[2022-05-17] MEDS: Acetaminophen 325 MG Tab PO PRN (05:20)
[2022-05-17] MEDS: Warfarin 2.5 MG Tab PO SCH (16:19)
[2022-05-17] MEDS: Cephalexin 500 MG Cap PO SCH (22:05)
[2022-05-17] MEDS: atorvaSTATin 40 MG Tab PO SCH (22:06)
[2022-05-18] MEDS: Pantoprazole 40 MG Tab.CR PO SCH (05:29)
[2022-05-18] MEDS: SALMETEROL INH SCH ×2 (08:25→21:05)
[2022-05-18] MEDS: FLUTICASONE PROPION INH SCH ×2 (08:25→21:05)
[2022-05-18] MEDS: Metoprolol Tartrate 25 MG Tab PO SCH ×2 (08:26→21:06)
[2022-05-18] MEDS: Tamsulosin 0.4 MG Cap.ER PO SCH ×2 (08:26→18:12)
[2022-05-18] MEDS: Finasteride 5 MG Tab PO SCH (08:26)
[2022-05-18] MEDS: [UNRECOGNIZED DRUG - OTHER] TOP SCH (08:27)
[2022-05-18] MEDS: Amiodarone 200 MG Tab PO SCH (08:27)
[2022-05-18] MEDS: Cephalexin 500 MG Cap PO SCH ×3 (08:27→21:05)
[2022-05-18] MEDS: Warfarin 2.5 MG Tab PO SCH (16:06)
[2022-05-18] MEDS: atorvaSTATin 40 MG Tab PO SCH (21:06)
[2022-05-19] MEDS: Pantoprazole 40 MG Tab.CR PO SCH (06:10)
[2022-05-19] MEDS: FLUTICASONE PROPION INH SCH ×2 (08:46→20:56)
[2022-05-19] MEDS: [UNRECOGNIZED DRUG - OTHER] TOP SCH (08:46)
[2022-05-19] MEDS: SALMETEROL INH SCH ×2 (08:46→20:56)
[2022-05-19] MEDS: Amiodarone 200 MG Tab PO SCH (08:46)
[2022-05-19] MEDS: Metoprolol Tartrate 25 MG Tab PO SCH ×2 (08:47→20:57)
[2022-05-19] MEDS: Tamsulosin 0.4 MG Cap.ER PO SCH ×2 (08:47→17:59)
[2022-05-19] MEDS: Finasteride 5 MG Tab PO SCH (08:47)
[2022-05-19] MEDS: Cephalexin 500 MG Cap PO SCH ×3 (08:47→20:56)
[2022-05-19] MEDS: Warfarin 2.5 MG Tab PO SCH (15:27)
[2022-05-19] MEDS: atorvaSTATin 40 MG Tab PO SCH (20:57)
[2022-05-19] MEDS: Acetaminophen 325 MG Tab PO PRN (21:02)
[2022-05-19] MEDS: Melatonin 3 MG Tab PO PRN (21:03)
[2022-05-20] MEDS: Pantoprazole 40 MG Tab.CR PO SCH (05:30)
[2022-05-20] MEDS: SALMETEROL INH SCH ×2 (08:15→20:38)
[2022-05-20] MEDS: FLUTICASONE PROPION INH SCH ×2 (08:15→20:38)
[2022-05-20] MEDS: Amiodarone 200 MG Tab PO SCH (08:15)
[2022-05-20] MEDS: [UNRECOGNIZED DRUG - OTHER] TOP SCH (08:15)
[2022-05-20] MEDS: Tamsulosin 0.4 MG Cap.ER PO SCH ×2 (08:16→18:35)
[2022-05-20] MEDS: Finasteride 5 MG Tab PO SCH (08:16)
[2022-05-20] MEDS: Metoprolol Tartrate 25 MG Tab PO SCH ×2 (08:16→20:40)
[2022-05-20] MEDS: Cephalexin 500 MG Cap PO SCH ×3 (08:17→20:38)
[2022-05-20] MEDS: Warfarin 2.5 MG Tab PO SCH (15:58)
[2022-05-20] MEDS: atorvaSTATin 40 MG Tab PO SCH (20:38)
[2022-05-20] MEDS: Melatonin 3 MG Tab PO PRN (20:43)
[2022-05-21] MEDS: Pantoprazole 40 MG Tab.CR PO SCH (05:50)
[2022-05-21] MEDS: FLUTICASONE PROPION INH SCH ×2 (08:45→21:08)
[2022-05-21] MEDS: SALMETEROL INH SCH ×2 (08:45→21:08)
[2022-05-21] MEDS: Amiodarone 200 MG Tab PO SCH (08:46)
[2022-05-21] MEDS: Tamsulosin 0.4 MG Cap.ER PO SCH ×2 (08:46→18:19)
[2022-05-21] MEDS: Metoprolol Tartrate 25 MG Tab PO SCH ×2 (08:46→21:09)
[2022-05-21] MEDS: Finasteride 5 MG Tab PO SCH (08:46)
[2022-05-21] MEDS: Cephalexin 500 MG Cap PO SCH ×3 (08:46→21:08)
[2022-05-21] MEDS: [UNRECOGNIZED DRUG - OTHER] TOP SCH (08:47)
[2022-05-21] MEDS: Warfarin 2.5 MG Tab PO SCH (15:28)
[2022-05-21] MEDS: atorvaSTATin 40 MG Tab PO SCH (21:09)
[2022-05-21] MEDS: Melatonin 3 MG Tab PO PRN (21:13)
[2022-05-22] MEDS: Pantoprazole 40 MG Tab.CR PO SCH (05:47)
[2022-05-22] MEDS: Amiodarone 200 MG Tab PO SCH (08:34)
[2022-05-22] MEDS: SALMETEROL INH SCH ×2 (08:34→20:39)
[2022-05-22] MEDS: Tamsulosin 0.4 MG Cap.ER PO SCH ×2 (08:34→18:12)
[2022-05-22] MEDS: FLUTICASONE PROPION INH SCH ×2 (08:34→20:39)
[2022-05-22] MEDS: Cephalexin 500 MG Cap PO SCH ×3 (08:34→20:39)
[2022-05-22] MEDS: Metoprolol Tartrate 25 MG Tab PO SCH ×2 (08:34→20:42)
[2022-05-22] MEDS: Finasteride 5 MG Tab PO SCH (08:34)
[2022-05-22] MEDS: [UNRECOGNIZED DRUG - OTHER] TOP SCH (08:35)
[2022-05-22] MEDS: Warfarin 2.5 MG Tab PO SCH (15:54)
[2022-05-22] MEDS: atorvaSTATin 40 MG Tab PO SCH (20:40)
[2022-05-23] MEDS: Pantoprazole 40 MG Tab.CR PO SCH (06:12)
[2022-05-23] MEDS: FLUTICASONE PROPION INH SCH ×2 (09:23→20:56)
[2022-05-23] MEDS: SALMETEROL INH SCH ×2 (09:23→20:56)
[2022-05-23] MEDS: Finasteride 5 MG Tab PO SCH (09:24)
[2022-05-23] MEDS: [UNRECOGNIZED DRUG - OTHER] TOP SCH (09:24)
[2022-05-23] MEDS: Tamsulosin 0.4 MG Cap.ER PO SCH ×2 (09:24→18:41)
[2022-05-23] MEDS: Amiodarone 200 MG Tab PO SCH (09:25)
[2022-05-23] MEDS: Cephalexin 500 MG Cap PO SCH ×3 (09:25→20:57)
[2022-05-23] MEDS: Metoprolol Tartrate 25 MG Tab PO SCH ×2 (09:25→20:57)
[2022-05-23] MEDS: Warfarin 2.5 MG Tab PO SCH (15:19)
[2022-05-23] MEDS: atorvaSTATin 40 MG Tab PO SCH (20:57)
[2022-05-23] MEDS: Acetaminophen 325 MG Tab PO PRN (21:01)
[2022-05-23] MEDS: Melatonin 3 MG Tab PO PRN (21:02)
[2022-05-24] MEDS: Pantoprazole 40 MG Tab.CR PO SCH (05:22)
[2022-05-24] MEDS: Amiodarone 200 MG Tab PO SCH (08:49)
[2022-05-24] MEDS: FLUTICASONE PROPION INH SCH ×2 (08:50→20:31)
[2022-05-24] MEDS: Cephalexin 500 MG Cap PO SCH ×2 (08:50→15:01)
[2022-05-24] MEDS: SALMETEROL INH SCH ×2 (08:50→20:31)
[2022-05-24] MEDS: Tamsulosin 0.4 MG Cap.ER PO SCH ×2 (08:50→19:00)
[2022-05-24] MEDS: Metoprolol Tartrate 25 MG Tab PO SCH ×2 (08:51→20:35)
[2022-05-24] MEDS: Finasteride 5 MG Tab PO SCH (08:52)
[2022-05-24] MEDS: [UNRECOGNIZED DRUG - OTHER] TOP SCH (08:53)
[2022-05-24] MEDS: Warfarin 2.5 MG Tab PO SCH (17:07)
[2022-05-24] MEDS: Melatonin 3 MG Tab PO PRN (20:31)
[2022-05-24] MEDS: atorvaSTATin 40 MG Tab PO SCH (20:31)
[2022-05-24] MEDS: Acetaminophen 325 MG Tab PO PRN (20:32)
[2022-05-25] MEDS: Pantoprazole 40 MG Tab.CR PO SCH (05:00)
[2022-05-25] MEDS: Tamsulosin 0.4 MG Cap.ER PO SCH (09:11)
[2022-05-25] MEDS: Finasteride 5 MG Tab PO SCH (09:12)
[2022-05-25] MEDS: SALMETEROL INH SCH (09:12)
[2022-05-25] MEDS: FLUTICASONE PROPION INH SCH (09:12)
[2022-05-25] MEDS: Metoprolol Tartrate 25 MG Tab PO SCH (09:12)
[2022-05-25] MEDS: Amiodarone 200 MG Tab PO SCH (09:12)
[2022-05-25] MEDS: [UNRECOGNIZED DRUG - OTHER] TOP SCH (09:12)
[2022-05-25 09:13] VITALS: BP 108/56; PULSE 82
== END 2022-05-25 12:30 | disposition home or self-care (01) | DRG 560 ==
LOC: UNDOADMIN 13:41 → FB.MS 13:41
PROVIDERS: ADMIT Family Medicine; ATTEND Student in an Organized Health Care Education/Training Program
DX: Z47.89 Encounter for other orthopedic aftercare (principal); N39.0 Urinary tract infection, site not specified; Z98.1 Arthrodesis status; R53.81 Other malaise; Z51.5 Encounter for palliative care; R33.8 Other retention of urine; I48.0 Paroxysmal atrial fibrillation; E66.9 Obesity, unspecified; I10 Essential (primary) hypertension; N40.1 Benign prostatic hyperplasia with lower urinary tract symptoms; E78.2 Mixed hyperlipidemia; K21.9 Gastro-esophageal reflux disease without esophagitis; F17.210 Nicotine dependence, cigarettes, uncomplicated; J44.9 Chronic obstructive pulmonary disease, unspecified; H91.90 Unspecified hearing loss, unspecified ear; H54.7 Unspecified visual loss; E78.00 Pure hypercholesterolemia, unspecified; G62.9 Polyneuropathy, unspecified; Z98.890 Other specified postprocedural states; Z79.899 Other long term (current) drug therapy; Z79.01 Long term (current) use of anticoagulants; Z86.73 Personal history of transient ischemic attack (TIA), and cerebral infarction without residual deficits; Z98.49 Cataract extraction status, unspecified eye; G47.00 Insomnia, unspecified; Z68.25 Body mass index [BMI] 25.0-25.9, adult
CPT/HCPCS: 36415; 51701; 51702; 51798; 81001; 85610; 87086; 87088; 87186; 97110-GO; 97110-GP; 97116-GP; 97162-GP; 97166-GO; 97530-GO; 97530-GP; 97535-GO; 97542-GO; 97760-GO; 99305; 99308; 99315; A9270-GY